=== PATIENT | female | born 1985 | race African-American/Black ===

== ENCOUNTER 2017-06-21 12:14 | Emergency (ER) | payer OTHER ==
[~2017-06-21] VITALS: Ht 154.9 cm; Wt 74.8 kg
--- NOTE | ~2017-06-21 | US85 ---
[facility] A Service of [facility] & [facility] RADIOLOGY TEXT RESULTS PATIENT: MACKENZIE LIMON LOCATION: [facility] : 87 UNIT #: [id number] AGE: [address]: Carmina Skaggs APRN SEX: F ORDER DR: [id number] [facility] [address] [place], [place] [address] [id number] E MR#: [id number] Acc #: [id number] NAME: MACKENZIE LIMON : 1985 SEX: F STUDY DATE/TIME: 06/21/2017 13:20 UNIT: [facility] ROOM: STUDY DESCRIPTION: [facility] Attending Physician: Carmina Skaggs A.P.R.N. Ordering Physician: Ed Ernie Dubose M.D. Primary Care Physician: [facility] MEDICAL IMAGING REPORT This report is preliminary unless electronic signature is present EXAM Left lower extremity HISTORY Left lower extremity pain for 4 days. COMPARISON None available. FINDINGS No deep vein thrombus is identified in the left lower extremity. The left common femoral vein through the popliteal vein are widely patent. There is normal compressibility, spontaneous and phasic waveforms. No calf vein thrombus. IMPRESSION Negative for left lower extremity deep vein thrombosis. Dictated by... Gabriel Francois M.D. THIS IS AN ELECTRONICALLY VERIFIED REPORT Gabriel Francois M.D. at 06/22/2017 5:15 PM JUWAN/penny TD: 06/22/2017 16:10 JOB #: [id number] MEDICAL IMAGING REPORT Page 1 of 1 COPY
[~2017-06-21 12:14] MED LIST: ALBUTEROL17 GM INH; DOXYCYCLINE PO; IRON PILL PO; LORTAB 7.5-5001 TAB PO; PEN-VEE K PO; PULMICORT200 MCG/AE INH
== END 2017-06-21 14:48 | disposition home or self-care (01) ==
LOC: CED 12:14 → CFTX 12:14
DX: M79.662 Pain in left lower leg (principal); J45.909 Unspecified asthma, uncomplicated; Z91.040 Latex allergy status; F17.200 Nicotine dependence, unspecified, uncomplicated; R56.9 Unspecified convulsions
CPT/HCPCS: 84703; 93971; 99284

== ENCOUNTER 2017-07-14 03:17 | Emergency (ER) | payer OTHER ==
--- NOTE | ~2017-07-14 | CR63 ---
[facility] A Service of [facility] & [facility] RADIOLOGY TEXT RESULTS PATIENT: MACKENZIE LIMON LOCATION: [facility] : 87 UNIT #: [id number] AGE: [address]: Trung Beatty SEX: F ORDER DR: [id number] [facility] [address] [place], [place] [address] [id number] E MR#: [id number] #: [id number] NAME: MACKENZIE LIMON : 1985 SEX: F STUDY DATE/TIME: 07/14/2017 5:01 UNIT: [facility] ROOM: STUDY DESCRIPTION: CR Chest 2 View Attending Physician: Trung Beatty P.A.-C. Ordering Physician: Trung Beatty P.A.-C. Primary Care Physician: [facility] MEDICAL IMAGING REPORT This report is preliminary unless electronic signature is present EXAM Two-view chest INDICATION Cough and shortness of air for the past 3 days. PROCEDURE Frontal and lateral views of the chest. COMPARISON 01/31/2011 FINDINGS Heart size within normal limits. No dense consolidation, pleural fluid or pneumothorax. IMPRESSION No active process. Dictated by... Ronnie Gray M.D. THIS IS AN ELECTRONICALLY VERIFIED REPORT Ronnie Gray M.D. at 07/14/2017 10:01 PM Georges TD: 07/14/2017 08:48 JOB #: [id number] MEDICAL IMAGING REPORT Page 1 of 1 COPY
--- NOTE | ~2017-07-14 | EKG ---
PATIENT: MACKENZIE LIMON UNIT #: [id number] Ventricular Rate: 84 BPM Atrial Rate: 84 BPM P-R Interval: 128 ms QRS Duration: 78 ms Q-T Interval: 362 ms QTC Calculation(Bezet): 427 ms P [place]: 77 degrees Calculated R [place]: -15 degrees Calculated T [place]: 10 degrees Diagnosis Line: Normal sinus rhythm Diagnosis Line: Normal ECG Diagnosis Line: No previous ECGs available Diagnosis Line: Confirmed by KERRIE NIX MD ([id number]) on 07/14/2017 Diagnosis Line: 2:04:20 PM INTERPRETING MD: BOYD MCKEON
== END 2017-07-14 05:56 | disposition home or self-care (01) ==
LOC: CED 03:17
DX: M94.0 Chondrocostal junction syndrome [Tietze] (principal); J20.9 Acute bronchitis, unspecified; J45.909 Unspecified asthma, uncomplicated; R56.9 Unspecified convulsions; Z98.890 Other specified postprocedural states; Z91.040 Latex allergy status
CPT/HCPCS: 71020; 93005; 99285